=== PATIENT | female | born 1945 | race Caucasian/White ===

== ENCOUNTER 2018-02-26 07:39 | Day surgery (SDC) | payer OTHER ==
[2018-02-18 14:24] LABS: Absolute Lymphocytes (CBC) 3.8 K/uL (0.7-4.9); Absolute Monocytes 0.6 K/uL (0.1-1.3); Absolute Neutrophil 4.5 K/uL (1.8-8.0); Basophils % 0.7 % (0-1.3); Eosinophils % 3.8 % (0-4.4); Hematocrit 39.6 % (36.0-45.0); Lymphocytes % 40.7 % (15.3-44.8); MCH 31.6 pg (27.0-35.0); MCV 92.9 fL (80-100); MPV 9.2 fL (7.6-11.3); Monocytes % 6.3 % (3.3-12.3); RBC Red Blood Cell Count 4.26 M/uL (3.86-4.86)
[2018-02-18 14:34] LABS: Potassium 4.1 mmol/L (3.5-5.1)
--- NOTE | 2018-02-18 14:35 | RAD REPORT ---
EXAM DESCRIPTION: RAD - Chest Pa And Lat (2 Views) - 02/18/2018 2:27 pm CLINICAL HISTORY: Preop chest, pending right chest wall soft tissue mass biopsy COMPARISON: CT chest February 04 ; AP chest June 2016 TECHNIQUE: PA and lateral views of the chest were obtained. FINDINGS: The lungs are fibrotic as a baseline. Scarring and nodularity in the lateral left upper l sully field and lateral mid left lung field are similar to the CT study. Focal density in the posterior gutter on the left unchanged from prior imaging back to 2016. Heart size is normal and central vascu lature is within normal limits. No pleural effusion or pneumothorax seen. No acute bony finding not ed. No aortic abnormality. IMPRESSION: Scattered fibrotic lung change with scarring. No acute cardiopulmonary finding. No new finding from February 04.
--- NOTE | 2018-02-19 04:41 | EKG ---
Test Date: 2018-02-18 Test Time: 14:17:35 Window Repairer: PRABHU MEASUREMENT RESULTS: Intervals: Rate: 62 TN: 128 QRSD: 72 QT: 430 QTc: 436 [place]: P: 47 TN: 128 QRS: 8 T: 33 INTERPRETIVE STATEMENTS: Normal sinus rhythm Normal ECG Compared to ECG 07/05/2016 06:31:08 Sinus bradycardia no longer present Electronically Signed On 02-19-18 04:41:26 CDT by Dung Mendoza
[2018-02-26] MEDS ORDERED: NA CHLORIDE 0.9% 1,000 ML ONE (08:08)
[2018-02-26] MEDS ORDERED: CEFAZOLIN/SWI 1gm 1 GM/10 ML SYR ONE (08:09)
[2018-02-26] MEDS ORDERED: FENTANYL CITR 100 MCG/2 ML ONE (08:52)
[2018-02-26] MEDS ORDERED: PROPOFOL 200 MG/20 ML VIAL IV ONE (08:52)
[2018-02-26] MEDS ORDERED: LIDOCAINE 2% MPF 5 ML VIAL ONE (08:53)
[2018-02-26] MEDS ORDERED: ONDANSETRON HCL 40 MG/20 ML VIAL ONE (08:53)
[2018-02-26] MEDS: MEPERIDINE HCL 25 MG/0.5 ML ONE ×2 (10:12→10:19)
[2018-02-26] MEDS ORDERED: HYDROCODONE/APAP 7.5/325 MG TAB ONE (11:09)
--- NOTE | 2018-02-26 13:16 | OP ---
Date of Procedure: 02/26/2018 Surgeon: Jean Luna MD Preoperative Diagnosis: History of breast cancer. Right chest wall mass. Postoperative Diagnosis: History of breast cancer. Right chest wall mass. Procedure: Excisional biopsy, right chest wall mass, 4 x 3 cm, with layered closure. Estimated Blood Loss: Minimal. Specimen: Right chest wall mass. Findings: A hard nodule suspicious for metastatic disease. Anesthesia: General. Complications: None. Disposition: The patient tolerated the procedure in stable condition and taken to Recovery in good g eneral condition. Procedure In Detail: The patient was brought to the OR and placed in the supine position. General a nesthesia was begun. The patient was prepped and draped in the usual sterile fashion. Then Marcaine 0.5% was infiltrated locally. A 15-blade was used to make a 4 cm incision. Subcutaneous tissue was divided, and deep to the subcutaneous tissue a hard nodule was identified, an area of 3 x 4 cm was e xcised and sent to Pathology. Wound irrigated. Bleeding controlled with cautery. 3-0 chromic used to approximate the subcutaneous tissue and close the skin. Sterile dressing was applied. The patient was awakened and taken to Recovery in good general condition. /MODL Voice ID: [id number] Report ID: [id number]
--- NOTE | 2018-02-26 13:16 | DS ---
Date of Discharge: 02/26/2018 Discharge Note: The patient will go to Day Surgery and home when stable. Disposition: Home. Condition: Stable. Discharge Instructions: Resume home medications and diet. Activity as tolerated. No heavy lifting. Keep dressing clean and dry. Follow up in my office in 1 week. Call for appointment. Tylenol No. 3 one tablet p.o. q.4 p.r.n. pain. Follow up with Dr. Agosto's office. JEFF/CHERELLE Voice ID: [id number] Report ID: [id number]
== END 2018-02-26 11:29 | disposition home or self-care (01) ==
LOC: OR 07:39
PROVIDERS: ATTEND Surgery
PROC: 0JB60ZZ Excision of Chest Subcutaneous Tissue and Fascia, Open Approach (ICD-10-PCS; principal; 2018-02-26 09:00)
DX: C79.89 Secondary malignant neoplasm of other specified sites (principal); Z85.3 Personal history of malignant neoplasm of breast; I25.10 Atherosclerotic heart disease of native coronary artery without angina pectoris; I10 Essential (primary) hypertension; F17.200 Nicotine dependence, unspecified, uncomplicated; Z80.9 Family history of malignant neoplasm, unspecified; Z83.3 Family history of diabetes mellitus
CPT/HCPCS: 11604; 36415; 71046; 80048; 82962 ×2; 85025; 88305; 93005; J0690; J2175; J2405; J3010; J7030; J2704

== ENCOUNTER 2018-03-18 09:55 | Day surgery (SDC) | payer OTHER ==
[2018-03-18 10:16] LABS: Absolute Lymphocytes (CBC) 2.9 K/uL (0.7-4.9); Absolute Monocytes 0.4 K/uL (0.1-1.3); Absolute Neutrophil 4.8 K/uL (1.8-8.0); Basophils % 0.7 % (0-1.3); Eosinophils % 1.5 % (0-4.4); Hematocrit 39.4 % (36.0-45.0); MCH 31.2 pg (27.0-35.0); MCV 93.1 fL (80-100); RBC Red Blood Cell Count 4.23 M/uL (3.86-4.86)
[2018-03-18] MEDS ORDERED: PROPOFOL 200 MG/20 ML VIAL IV ONE (10:26)
[2018-03-18] MEDS ORDERED: MIDAZOLAM HCL 2 MG/2 ML INJ ONE (10:26)
[2018-03-18] MEDS ORDERED: FENTANYL CITR 100 MCG/2 ML ONE (10:26)
[2018-03-18] MEDS ORDERED: LIDOCAINE 2% MPF 5 ML VIAL ONE (10:28)
[2018-03-18] MEDS ORDERED: ONDANSETRON 4 MG/2 ML VIAL ONE (10:29)
[2018-03-18] MEDS ORDERED: HEPARIN 5000 UNIT/ML 1 ML VIAL ONE (10:32)
[2018-03-18] MEDS ORDERED: NS 0.9% VIAL 20 ML ONE (10:32)
[2018-03-18] MEDS ORDERED: LIDOCAINE 1% MPF 30 ML VIAL ONE (10:33)
[2018-03-18] MEDS ORDERED: Ringers Lactate 0 ML IV ONE (10:34)
[2018-03-18] MEDS ORDERED: CEFAZOLIN/SWI 1gm 1 GM/10 ML SYR ONE (10:34)
[2018-03-18] MEDS ORDERED: NA CHLORIDE 0.9% 1,000 ML ONE (10:39)
--- NOTE | 2018-03-18 11:39 | RAD REPORT ---
EXAM DESCRIPTION: RAD - Fluoroscopy <1 Hour - 03/18/2018 11:26 am CLINICAL HISTORY: Venous catheter insertion. PORT-A-CATH PLACEMENT IN OR3 COMPARISON: No comparisons FINDINGS: Fluoroscopic imaging is submitted from placement of a venous catheter. Details of the pro cedure not available. Fluoroscopy time: 0.5 minutes
--- NOTE | 2018-03-18 12:03 | DS ---
Discharge Note: The patient will get a chest x-ray in Recovery. If no complications, then the patie nt will be discharged to home. Disposition: Home. Condition: Stable. Discharge Instructions: Resume home medications and diet. Activity as tolerated. No heavy lifting. Remove outer dressing in 2 days. Shower. Keep wound clean and dry. Keep Steri-Strips on at all t imes. Follow up in my office 2 weeks. Call for appointment. [facility]. JEFF/CHERELLE Voice ID: [id number] Report ID: [id number]
--- NOTE | 2018-03-18 12:03 | OP ---
Date of Procedure: 03/18/2018 Surgeon: Jean Luna MD Preoperative Diagnosis: Metastatic right breast cancer. Postoperative Diagnosis: Metastatic right breast cancer. Procedure: Placement of left internal jugular Port-A-Cath and interpretation of intraoperative fluor oscopy. Estimated Blood Loss: Minimal. Specimen: None. Findings: Normal anatomy. Anesthesia: MAC. Complications: None. Disposition: The patient tolerated the procedure in stable condition and taken to Recovery in good g eneral condition. Procedure In Detail: The patient was brought to the OR and placed in supine position. MAC anesthesi a was begun. The patient was prepped and draped in the usual sterile fashion. Lidocaine 1% infiltra rae locally. An 18-gauge needle was used to access the left IJ vein. Guidewire passed, position con firmed with fluoroscopy. A 3 cm counterincision was made on the left anterior chest. Subcu tissue d ivided. Pocket created. Tunneling device was used to tunnel the catheter between the 2 wounds and t hen Seldinger technique used and tip of the catheter placed in the SVC under fluoroscopy. Then cut t o appropriate size, attached to the Port-A-Cath device. Port-A-Cath device was attached to subcutane ous tissue with 3-0 Vicryl. Then 3-0 chromic used to approximate the subcutaneous tissue and close t he skin. The catheter flushed with heparin and packed with heparin with good blood flow. Sterile dressing was applied. The patient was awakened and taken to Recovery in go od general condition. /MODL Voice ID: [id number] Report ID: [id number]
--- NOTE | 2018-03-18 12:22 | RAD REPORT ---
EXAM DESCRIPTION: RAD - Chest Single View - 03/18/2018 12:13 pm CLINICAL HISTORY: S/P PORT-A-CATH PLACEMENT Chest pain. COMPARISON: Chest Pa And Lat (2 Views) dated 02/18/2018; Chest Single View dated 07/04/2016 FINDINGS: Portable technique limits examination quality. Left-sided port catheter has tip in the SVC. No postprocedure pneumothorax. The lungs appear clear of acute infiltrate. The heart is normal in size. No displaced fractures. IMPRESSION: No postprocedure pneumothorax.
== END 2018-03-18 13:20 | disposition home or self-care (01) ==
LOC: OR 09:55
PROVIDERS: ATTEND Surgery
PROC: 0JH60WZ Insertion of Totally Implantable Vascular Access Device into Chest Subcutaneous Tissue and Fascia, Open Approach (ICD-10-PCS; principal; 2018-03-18 10:00)
DX: C50.911 Malignant neoplasm of unspecified site of right female breast (principal); I25.10 Atherosclerotic heart disease of native coronary artery without angina pectoris; I10 Essential (primary) hypertension; E11.9 Type 2 diabetes mellitus without complications; F17.200 Nicotine dependence, unspecified, uncomplicated; Z95.1 Presence of aortocoronary bypass graft; Z95.5 Presence of coronary angioplasty implant and graft
CPT/HCPCS: 36415; 36561; 71045; 82962 ×2; 85025; C1788; J0690; J1644 ×2; J2250; J2405; J2704; J3010; J7030; 76000

== ENCOUNTER 2018-09-29 08:40 | Day surgery (SDC) | payer OTHER ==
[2018-09-29 08:45] LABS: Absolute Lymphocytes (CBC) 2.6 K/uL (0.7-4.9); Absolute Monocytes 0.7 K/uL (0.1-1.3); Absolute Neutrophil 6.5 K/uL (1.8-8.0); Basophils % 1.1 % (0-1.3); Eosinophils % 2.8 % (0-4.4); Hematocrit 41.8 % (36.0-45.0); Lymphocytes % 25.6 % (15.3-44.8); MPV 9.6 fL (7.6-11.3); Monocytes % 6.9 % (3.3-12.3); RBC Red Blood Cell Count 4.41 M/uL (3.86-4.86)
--- OUTSIDE RECORDS SUMMARY | 2018-09-29 08:53 | XMS REPORT ---
:1945 Author Organization [facility] Address [address] [place] [address] [address]. [address] [place] [address] Care Team Providers Name Role Phone Unavailable Unavailable Unavailable Problems This patient has no known problems. Allergies, Adverse Reactions, Alerts This patient has no known allergies or adverse reactions. Medications This patient has no known medications.
[2018-09-29] MEDS ORDERED: NA CHLORIDE 0.9% 1,000 ML ONE (09:31)
[2018-09-29] MEDS ORDERED: CEFAZOLIN/SWI 1gm 1 GM/10 ML SYR ONE (09:31)
[2018-09-29] MEDS ORDERED: FENTANYL CITR 100 MCG/2 ML ONE (09:55)
[2018-09-29] MEDS ORDERED: PROPOFOL 200 MG/20 ML VIAL IV ONE (09:56)
[2018-09-29] MEDS ORDERED: MIDAZOLAM HCL 2 MG/2 ML INJ ONE (09:56)
[2018-09-29] MEDS ORDERED: LIDOCAINE 2% MPF 5 ML VIAL ONE (09:56)
[2018-09-29] MEDS ORDERED: BUPIVACAINE 0.5% PF 10 ML VIAL ONE (10:21)
[2018-09-29] MEDS ORDERED: Mastisol Adhesive Liq ONE (11:02)
--- NOTE | 2018-09-29 23:09 | OP ---
Date of Procedure: 09/29/2018 Surgeon: Jean Luna MD Preoperative Diagnosis: Metastatic breast cancer. Postoperative Diagnosis: Metastatic breast cancer. Procedure: Removal of left chest Port-A-Cath. Estimated Blood Loss: Minimal. Specimens: Port-A-Cath device. Findings: Normal anatomy. Anesthesia: MAC. Complications: None. Disposition: The patient tolerated the procedure in stable condition, taken to Recovery in good gene ral condition. Operative Note: The patient brought to the OR and placed in supine position. MAC anesthesia was beg un. The patient was prepped and draped in usual sterile fashion. Marcaine 0.5% was infiltrated local ly. A 15 blade was used to make a 3 cm incision over the previous insertion site of the Port-A-Cath. Subcutaneous tissue was divided, port identified and freed from surrounding tissue with sharp and bl unt dissection. Then removed, sent to Pathology for identification. Wound irrigated. Bleeding cont rolled with cautery. A 3-0 chromic used to approximate the subcutaneous tissue and close the skin. Sterile dressing was applied. The patient was awakened and taken to Recovery in good general conditi on. /MODL Voice ID: [id number] Report ID: [id number]
--- NOTE | 2018-09-29 23:12 | DS ---
Date of Discharge: 09/29/2018 The patient will go to Day Surgery and home when stable. Disposition: Home. Condition: Stable. Discharge Instructions: Resume home medicines and diet. Activity as tolerated. No heavy lifting. Remove outer dressing in 2 days. Shower. Keep wound clean and dry. Keep Steri-Strips on at all alfred es. Tylenol No. 3 one tablet p.o. q.4 p.r.n. pain. Follow up in my office in 2 weeks, call for appo intment. JEFF/CHERELLE Voice ID: [id number] Report ID: [id number]
== END 2018-09-29 11:39 | disposition home health service (06) ==
LOC: OR 08:40
PROVIDERS: ATTEND Surgery
PROC: 0JPT0WZ Removal of Totally Implantable Vascular Access Device from Trunk Subcutaneous Tissue and Fascia, Open Approach (ICD-10-PCS; principal; 2018-09-29 10:00)
DX: Z45.2 Encounter for adjustment and management of vascular access device (principal); C50.919 Malignant neoplasm of unspecified site of unspecified female breast; I10 Essential (primary) hypertension; I25.10 Atherosclerotic heart disease of native coronary artery without angina pectoris; I25.2 Old myocardial infarction; Z95.1 Presence of aortocoronary bypass graft
CPT/HCPCS: 85025; 36415; 82947; 82962; 88300; 36590; J2704; J2250; J0690; J7030; J3010